=== PATIENT | female | born 1960 | race African-American/Black ===

== ENCOUNTER 2018-03-21 19:48 | Inpatient (IN) ==
[2018-03-21 22:05] LABS: Basophils % 0.3 % (0.0-0.8); Eosinophils % 0.3 % (0.00-10.9); Hematocrit 29.4 VOL% (35.7-47.0); Immature Granulocytes % 0.3 %; Immature Granulocytes Absolute 0.03 #; Lymphocytes # 1.9 10*3/uL (1.4-4.0); Lymphocytes % 22.5 % (21.3-54.2); Mean Corpuscular Hemoglobin 27 PG (27-34); Mean Platelet Volume 9.5 FL (9.6-12.0); Monocytes # 0.7 10*3/uL (0.11-0.8); Monocytes % 7.7 % (1.7-12.7); Neutrophils # 5.9 10*3/uL (1.4-7.4); Neutrophils % 68.9 % (38.7-73.9); Platelet Count 449 T/CUMM (130-400); Red Blood Count 3.77 MC/CUMM (3.8-5.5); Red Cell Distribution Width 17.2 % (9.3-17.3); White Blood Count 8.6 T/CUMM (4-12)
[2018-03-21 22:29] LABS: Albumin 2.4 G/DL (3.4-5.0); Bilirubin,Total 0.4 MG/DL (0.2-1.0); Calcium 9.8 MG/DL (8.5-10.1); Lactic Acid 0.6 MMOL/L (0.4-2.0); Osmolality,Calculated 269.2 MOS/KG (273-304); Total Protein 9.7 G/DL (6.4-8.3)
[2018-03-21 22:39] LABS: Potassium 2.3 MMOL/L (3.5-5.1)
[2018-03-21] MEDS ORDERED: POTASSIUM CHLORIDE 20 MEQ TABLET PO STA ×2 (22:40→23:27)
[2018-03-22] MEDS ORDERED: ONDANSETRON 4 MG/2 ML VIAL IV PRN (02:28)
[2018-03-22] MEDS ORDERED: ACETAMINOPHEN 325 MG TABLET PO PRN (02:28)
[2018-03-22] MEDS ORDERED: POLYETHYLENE GLYCOL POWDER 17 GM PACK PO PRN (02:34)
[2018-03-22 04:11] LABS: Basophils % 0.5 % (0.0-0.8); Eosinophils % 0.5 % (0.00-10.9); Hematocrit 29.7 VOL% (35.7-47.0); Immature Granulocytes % 0.5 %; Immature Granulocytes Absolute 0.04 #; Lymphocytes # 1.8 10*3/uL (1.4-4.0); Lymphocytes % 21.6 % (21.3-54.2); Mean Corpuscular HGB Conc 33.7 GM/DL (32-36); Mean Corpuscular Hemoglobin 26 PG (27-34); Mean Corpuscular Volume 77.7 FL (87-102); Mean Platelet Volume 9.1 FL (9.6-12.0); Monocytes # 0.7 10*3/uL (0.11-0.8); Monocytes % 8.9 % (1.7-12.7); Neutrophils # 5.6 10*3/uL (1.4-7.4); Platelet Count 402 T/CUMM (130-400); Red Blood Count 3.82 MC/CUMM (3.8-5.5); Red Cell Distribution Width 17.1 % (9.3-17.3); White Blood Count 8.2 T/CUMM (4-12)
[2018-03-22 04:27] LABS: Calcium 9.1 MG/DL (8.5-10.1); Osmolality,Calculated 265.5 MOS/KG (273-304)
[2018-03-22 04:46] LABS: Potassium 2.3 MMOL/L (3.5-5.1)
[2018-03-22] MEDS: MORPHINE 4 MG/1 ML VIAL IV PRN ×2 (07:51→16:04)
[2018-03-22] MEDS ORDERED: ENOXAPARIN 40 MG/0.4 ML SYRINGE SUBCUT SCH (09:00)
[2018-03-22] MEDS ORDERED: hydroCHLOROthiazide 25 MG TABLET PO SCH (09:00)
[2018-03-22] MEDS: cycloSPORINE OPH EMUL 1 VIAL BOTH EYES SCH ×2 (09:06→21:03)
[2018-03-22] MEDS: FLUTICASONE 50 MCG NASAL SPRAY 16 GM BOTTLE BOTH NARES SCH (09:06)
[2018-03-22] MEDS: POTASSIUM CHLORIDE RIDER 10 MEQ in PREMIX 1 EACH IV SCH ×4 (09:06→15:18)
[2018-03-22 09:12] LABS: % Iron Saturation 15.2 % (18-50)
[2018-03-22 09:14] LABS: Immunoglobulin A 491 MG/DL (70-400); Immunoglobulin G 1970 MG/DL (700-1600); Immunoglobulin M 104 MG/DL (40-230)
[2018-03-22] MEDS: OMEGA 3 ACID ETHYL ESTERS 1 GM CAPSULE PO SCH ×4 (09:17→21:02)
[2018-03-22] MEDS: POTASSIUM CHLORIDE 20 MEQ TABLET PO SCH (09:17)
[2018-03-22] MEDS: FERROUS SULFATE 325 MG TABLET PO SCH ×3 (09:17→16:04)
[2018-03-22] MEDS: DOCUSATE SODIUM 100 MG CAPSULE PO SCH ×3 (09:17→20:59)
[2018-03-22] MEDS: PANTOPRAZOLE 40 MG TABLET PO SCH ×2 (09:18→15:19)
[2018-03-22] MEDS: TOPIRAMATE 100 MG TABLET PO SCH ×3 (09:18→20:59)
[2018-03-22] MEDS: SPIRONOLACTONE 25 MG TABLET PO SCH (15:19)
[2018-03-22] MEDS: ATORVASTATIN 20 MG TABLET PO SCH (20:59)
[2018-03-22 21:21] LABS: Apearance,Urine Slightly Hazy (Clear); Bacteria,Urine Occasional /HPF (Few); Bilirubin,Urine Negative (Negative); Blood, Urine Small mg/dL (Negative); Glucose,Urine (UA) Negative (Negative); Ketones,Urine 5 mg/dL (Negative); Mucus,Urine Occasional /LPF (Occasional); Nitrite,Urine Negative (Negative); Protein,Urine Negative; RBC,Urine 1 /HPF (0-4); Squamous Epithelial Cell,Urine Many /HPF (0-10); Urine Color Yellow (Yellow); Urine Specific Gravity > 1.060 (1.001-1.035); WBC,Urine 3 /HPF (0-6)
[2018-03-22] MEDS: POTASSIUM CHLORIDE RIDER 10 MEQ in PREMIX 1 EACH IV PRN ×2 (22:05→23:07)
[2018-03-23] MEDS: MORPHINE 4 MG/1 ML VIAL IV PRN (00:14)
[2018-03-23] MEDS: POTASSIUM CHLORIDE RIDER 10 MEQ in PREMIX 1 EACH IV PRN ×8 (00:15→22:38)
[2018-03-23 04:35] LABS: Basophils % 0.3 % (0.0-0.8); Eosinophils # 0.1 10*3/uL (0.0-0.87); Eosinophils % 1.8 % (0.00-10.9); Hematocrit 26.4 VOL% (35.7-47.0); Hemoglobin 9.2 GM/DL (12.0-16.0); Immature Granulocytes % 0.4 %; Immature Granulocytes Absolute 0.03 #; Lymphocytes # 1.8 10*3/uL (1.4-4.0); Lymphocytes % 23.3 % (21.3-54.2); Mean Corpuscular HGB Conc 34.8 GM/DL (32-36); Mean Corpuscular Hemoglobin 27 PG (27-34); Mean Corpuscular Volume 76.5 FL (87-102); Mean Platelet Volume 9.4 FL (9.6-12.0); Monocytes # 0.7 10*3/uL (0.11-0.8); Monocytes % 8.8 % (1.7-12.7); Neutrophils % 65.4 % (38.7-73.9); Platelet Count 385 T/CUMM (130-400); Red Blood Count 3.45 MC/CUMM (3.8-5.5); Red Cell Distribution Width 17.4 % (9.3-17.3); White Blood Count 7.6 T/CUMM (4-12)
[2018-03-23 05:05] LABS: Calcium 8.8 MG/DL (8.5-10.1); Osmolality,Calculated 261.7 MOS/KG (273-304); Potassium 3.4 MMOL/L (3.5-5.1)
[2018-03-23] MEDS: DOCUSATE SODIUM 100 MG CAPSULE PO SCH ×2 (09:08→21:31)
[2018-03-23] MEDS: SPIRONOLACTONE 25 MG TABLET PO SCH (09:08)
[2018-03-23] MEDS: OMEGA 3 ACID ETHYL ESTERS 1 GM CAPSULE PO SCH ×3 (09:08→21:31)
[2018-03-23] MEDS: PANTOPRAZOLE 40 MG TABLET PO SCH (09:09)
[2018-03-23] MEDS: FERROUS SULFATE 325 MG TABLET PO SCH ×2 (09:09→17:30)
[2018-03-23] MEDS: FLUTICASONE 50 MCG NASAL SPRAY 16 GM BOTTLE BOTH NARES SCH (09:09)
[2018-03-23] MEDS: POTASSIUM CHLORIDE 20 MEQ TABLET PO SCH (09:09)
[2018-03-23] MEDS: cycloSPORINE OPH EMUL 1 VIAL BOTH EYES SCH ×2 (09:09→21:32)
[2018-03-23] MEDS: TOPIRAMATE 100 MG TABLET PO SCH ×3 (09:09→21:30)
[2018-03-23] MEDS: ATORVASTATIN 20 MG TABLET PO SCH (21:30)
[2018-03-24] MEDS: MORPHINE 4 MG/1 ML VIAL IV PRN ×2 (01:09→12:08)
[2018-03-24 01:53] LABS: Basophils # 0.1 10*3/uL (0.0-0.2); Basophils % 0.6 % (0.0-0.8); Eosinophils # 0.1 10*3/uL (0.0-0.87); Eosinophils % 1.3 % (0.00-10.9); Hematocrit 25.9 VOL% (35.7-47.0); Immature Granulocytes % 0.8 %; Immature Granulocytes Absolute 0.06 #; Lymphocytes # 1.6 10*3/uL (1.4-4.0); Lymphocytes % 19.7 % (21.3-54.2); Mean Corpuscular HGB Conc 34.7 GM/DL (32-36); Mean Corpuscular Hemoglobin 27 PG (27-34); Mean Corpuscular Volume 76.4 FL (87-102); Mean Platelet Volume 9.4 FL (9.6-12.0); Monocytes # 0.6 10*3/uL (0.11-0.8); Monocytes % 7.9 % (1.7-12.7); Neutrophils # 5.5 10*3/uL (1.4-7.4); Neutrophils % 69.7 % (38.7-73.9); Platelet Count 377 T/CUMM (130-400); Red Blood Count 3.39 MC/CUMM (3.8-5.5); Red Cell Distribution Width 17.2 % (9.3-17.3)
[2018-03-24 02:01] LABS: Calcium 9.2 MG/DL (8.5-10.1); Osmolality,Calculated 264.4 MOS/KG (273-304); Potassium 3.3 MMOL/L (3.5-5.1)
[2018-03-24 02:10] LABS: INR 1.1; PT Patient Result 11.9 SECS; Partial Thromboplastin Time 28.9 SECS (0-40)
[2018-03-24 07:25] LABS: Total Protein (Chem) 9.2 G/DL (6.4-8.3)
[2018-03-24 09:23] LABS: Albumin (SPE) 3.3 G/DL (3.2-5.3); Albumin (SPE) Rel % 35.6 %; Alpha 1 (SPE) 0.5 G/DL (0.1-0.4); Alpha 1 (SPE) Rel % 5.7 %; Alpha 2 (SPE) 1.5 G/DL (0.4-1.0); Alpha 2 (SPE) Rel % 16.2 %; Beta (SPE) 1.4 G/DL (0.5-1.1); Beta (SPE) Rel % 15.2 %; Gamma (SPE) 2.5 G/DL (0.7-1.7); Gamma (SPE) Rel % 27.3 %
[2018-03-24] MEDS: SPIRONOLACTONE 25 MG TABLET PO SCH (10:05)
[2018-03-24] MEDS: TOPIRAMATE 100 MG TABLET PO SCH ×3 (10:06→21:54)
[2018-03-24] MEDS: PANTOPRAZOLE 40 MG TABLET PO SCH (10:06)
[2018-03-24] MEDS: FERROUS SULFATE 325 MG TABLET PO SCH ×2 (10:06→16:40)
[2018-03-24] MEDS: OMEGA 3 ACID ETHYL ESTERS 1 GM CAPSULE PO SCH ×3 (10:06→21:54)
[2018-03-24] MEDS: POTASSIUM CHLORIDE 20 MEQ TABLET PO SCH (10:07)
[2018-03-24] MEDS: FLUTICASONE 50 MCG NASAL SPRAY 16 GM BOTTLE BOTH NARES SCH (10:07)
[2018-03-24] MEDS: POTASSIUM CHLORIDE RIDER 10 MEQ in PREMIX 1 EACH IV PRN ×4 (10:07→17:43)
[2018-03-24] MEDS: DOCUSATE SODIUM 100 MG CAPSULE PO SCH ×2 (10:07→21:54)
[2018-03-24] MEDS: cycloSPORINE OPH EMUL 1 VIAL BOTH EYES SCH ×2 (10:20→21:57)
[2018-03-24] MEDS: ATORVASTATIN 20 MG TABLET PO SCH (21:54)
[2018-03-25 04:49] LABS: Basophils % 0.5 % (0.0-0.8); Eosinophils # 0.1 10*3/uL (0.0-0.87); Eosinophils % 1.1 % (0.00-10.9); Hematocrit 26.1 VOL% (35.7-47.0); Hemoglobin 8.6 GM/DL (12.0-16.0); Immature Granulocytes % 0.7 %; Immature Granulocytes Absolute 0.06 #; Lymphocytes # 1.6 10*3/uL (1.4-4.0); Lymphocytes % 18.3 % (21.3-54.2); Mean Corpuscular Hemoglobin 26 PG (27-34); Mean Corpuscular Volume 79.1 FL (87-102); Mean Platelet Volume 9.4 FL (9.6-12.0); Monocytes # 0.8 10*3/uL (0.11-0.8); Monocytes % 8.9 % (1.7-12.7); Neutrophils # 6.3 10*3/uL (1.4-7.4); Neutrophils % 70.5 % (38.7-73.9); Platelet Count 371 T/CUMM (130-400); Red Cell Distribution Width 17.4 % (9.3-17.3); White Blood Count 8.9 T/CUMM (4-12)
[2018-03-25 05:17] LABS: Calcium 9.2 MG/DL (8.5-10.1); Osmolality,Calculated 266.2 MOS/KG (273-304); Potassium 3.5 MMOL/L (3.5-5.1)
[2018-03-25] MEDS: cycloSPORINE OPH EMUL 1 VIAL BOTH EYES SCH ×2 (09:19→20:26)
[2018-03-25] MEDS: FLUTICASONE 50 MCG NASAL SPRAY 16 GM BOTTLE BOTH NARES SCH (09:19)
[2018-03-25] MEDS ORDERED: BUPIVACAINE 0.5% /EPI 10 ML VIAL ONE (11:01)
[2018-03-25] MEDS ORDERED: VANCOMYCIN 500 MG VIAL ONE (11:05)
[2018-03-25] MEDS ORDERED: VANCOMYCIN 1,000 MG VIAL ONE ×2 (11:05→11:07)
[2018-03-25] MEDS ORDERED: TOBRAMYCIN 1.2 GM VIAL TOP ONE (11:07)
[2018-03-25] MEDS ORDERED: MORPHINE 4 MG/1 ML VIAL IV PRN (12:10)
[2018-03-25] MEDS ORDERED: PROPOFOL 200 MG/20 ML VIAL IV ONE (12:18)
[2018-03-25] MEDS ORDERED: SEVOFLURANE 1 UNIT/15 MINUTE INH ONE (12:18)
[2018-03-25] MEDS ORDERED: ONDANSETRON 4 MG/2 ML VIAL ONE ×2 (12:19→12:24)
[2018-03-25] MEDS ORDERED: SODIUM CHLORIDE 0.9% 250 ML IV ONE (12:19)
[2018-03-25] MEDS ORDERED: DEXAMETHASONE 10 MG/1 ML VIAL ONE (12:19)
[2018-03-25] MEDS ORDERED: MIDAZOLAM 2 MG/2 ML VIAL ONE (12:19)
[2018-03-25] MEDS ORDERED: KETOROLAC 30 MG/1 ML VIAL ONE (12:19)
[2018-03-25] MEDS ORDERED: fentaNYL 100 MCG/2 ML VIAL ONE (12:19)
[2018-03-25] MEDS ORDERED: HYDROmorphone 2 MG/1 ML VIAL ONE (12:24)
[2018-03-25] MEDS: HYDROmorphone 2 MG/1 ML VIAL IV PRN ×2 (12:26→12:31)
[2018-03-25] MEDS ORDERED: ONDANSETRON 4 MG/2 ML VIAL IV PRN (12:28)
[2018-03-25 13:33] LABS: Immuno Free Light Chain Kappa 5.23 MG/DL (0.33-1.94); Immuno Free Light Chain Lambda 3.43 MG/DL (0.57-2.63); Immuno Free Light Chain Ratio 1.52 MG/DL (0.26-1.65)
[2018-03-25] MEDS: SPIRONOLACTONE 25 MG TABLET PO SCH (13:33)
[2018-03-25] MEDS: TOPIRAMATE 100 MG TABLET PO SCH ×5 (13:34→20:32)
[2018-03-25] MEDS: DOCUSATE SODIUM 100 MG CAPSULE PO SCH ×2 (13:34→20:26)
[2018-03-25] MEDS: FERROUS SULFATE 325 MG TABLET PO SCH ×2 (13:34→18:09)
[2018-03-25] MEDS: POTASSIUM CHLORIDE 20 MEQ TABLET PO SCH (13:34)
[2018-03-25] MEDS: PANTOPRAZOLE 40 MG TABLET PO SCH (13:34)
[2018-03-25] MEDS: OMEGA 3 ACID ETHYL ESTERS 1 GM CAPSULE PO SCH ×3 (13:34→20:25)
[2018-03-25] MEDS: LACTATED RINGERS 1,000 ML IV SCH ×2 (13:36→23:59)
[2018-03-25] MEDS: ATORVASTATIN 20 MG TABLET PO SCH (20:25)
[2018-03-25] MEDS: MORPHINE 4 MG/1 ML VIAL IV PRN (20:26)
[2018-03-26] MEDS: MORPHINE 4 MG/1 ML VIAL IV PRN (00:02)
[2018-03-26 04:26] LABS: Basophils % 0.3 % (0.0-0.8); Eosinophils # 0.1 10*3/uL (0.0-0.87); Eosinophils % 1.1 % (0.00-10.9); Hematocrit 24.2 VOL% (35.7-47.0); Hemoglobin 8.3 GM/DL (12.0-16.0); Immature Granulocytes % 0.4 %; Immature Granulocytes Absolute 0.04 #; Lymphocytes # 1.4 10*3/uL (1.4-4.0); Lymphocytes % 14.3 % (21.3-54.2); Mean Corpuscular HGB Conc 34.3 GM/DL (32-36); Mean Corpuscular Hemoglobin 27 PG (27-34); Mean Corpuscular Volume 78.1 FL (87-102); Mean Platelet Volume 9.7 FL (9.6-12.0); Monocytes # 0.9 10*3/uL (0.11-0.8); Monocytes % 9.1 % (1.7-12.7); Neutrophils # 7.1 10*3/uL (1.4-7.4); Neutrophils % 74.8 % (38.7-73.9); Platelet Count 379 T/CUMM (130-400); Red Cell Distribution Width 17.9 % (9.3-17.3); White Blood Count 9.5 T/CUMM (4-12)
[2018-03-26 05:03] LABS: Calcium 8.5 MG/DL (8.5-10.1); Osmolality,Calculated 273.7 MOS/KG (273-304); Potassium 3.6 MMOL/L (3.5-5.1)
[2018-03-26] MEDS ORDERED: DEXAMETHASONE INJ 10 MG in SODIUM CHLORIDE 0.9% 50 ML IV ONE (07:39)
[2018-03-26] MEDS ORDERED: IRON DEXTRAN 1,500 MG in SODIUM CHLORIDE 0.9% 500 ML IV ONE (07:39)
[2018-03-26] MEDS ORDERED: ACETAMINOPHEN 500 MG TABLET PO ONE (07:39)
[2018-03-26] MEDS ORDERED: diphenhydrAMINE CAP 25 MG CAPSULE PO ONE (07:39)
[2018-03-26] MEDS ORDERED: IRON DEXTRAN 25 MG in SYRINGE 1 EACH IV ONE (07:39)
[2018-03-26] MEDS: VANCOMYCIN INJ 1,500 MG in SODIUM CHLORIDE 0.9% 500 ML IV SCH ×3 (07:40→15:20)
[2018-03-26] MEDS: SPIRONOLACTONE 25 MG TABLET PO SCH (09:17)
[2018-03-26] MEDS: FERROUS SULFATE 325 MG TABLET PO SCH ×2 (09:17→16:10)
[2018-03-26] MEDS: FLUTICASONE 50 MCG NASAL SPRAY 16 GM BOTTLE BOTH NARES SCH (09:18)
[2018-03-26] MEDS: PANTOPRAZOLE 40 MG TABLET PO SCH (09:18)
[2018-03-26] MEDS: OMEGA 3 ACID ETHYL ESTERS 1 GM CAPSULE PO SCH ×3 (09:18→21:19)
[2018-03-26] MEDS: POTASSIUM CHLORIDE 20 MEQ TABLET PO SCH (09:18)
[2018-03-26] MEDS: TOPIRAMATE 100 MG TABLET PO SCH ×3 (09:18→21:19)
[2018-03-26] MEDS: DOCUSATE SODIUM 100 MG CAPSULE PO SCH ×2 (09:22→21:19)
[2018-03-26] MEDS: cycloSPORINE OPH EMUL 1 VIAL BOTH EYES SCH ×2 (09:22→21:20)
[2018-03-26] MEDS ORDERED: IRON SUCROSE 300 MG in SODIUM CHLORIDE 0.9% 100 ML IV ONE (11:06)
[2018-03-26] MEDS: FONDAPARINUX 2.5 MG/0.5 ML SYRINGE SUBCUT SCH (15:20)
[2018-03-26] MEDS: LORATADINE 10 MG TABLET PO SCH (16:10)
[2018-03-26] MEDS: ATORVASTATIN 20 MG TABLET PO SCH (21:19)
[2018-03-27] MEDS: VANCOMYCIN INJ 1,500 MG in SODIUM CHLORIDE 0.9% 500 ML IV SCH ×2 (00:15→08:45)
[2018-03-27 05:06] LABS: Basophils % 0.5 % (0.0-0.8); Eosinophils # 0.1 10*3/uL (0.0-0.87); Eosinophils % 0.8 % (0.00-10.9); Hematocrit 24.9 VOL% (35.7-47.0); Hemoglobin 8.4 GM/DL (12.0-16.0); Immature Granulocytes % 0.6 %; Immature Granulocytes Absolute 0.04 #; Lymphocytes # 1.7 10*3/uL (1.4-4.0); Mean Corpuscular HGB Conc 33.7 GM/DL (32-36); Mean Corpuscular Hemoglobin 26 PG (27-34); Mean Corpuscular Volume 77.3 FL (87-102); Mean Platelet Volume 9.4 FL (9.6-12.0); Monocytes # 0.6 10*3/uL (0.11-0.8); Monocytes % 8.4 % (1.7-12.7); Neutrophils # 4.2 10*3/uL (1.4-7.4); Neutrophils % 63.7 % (38.7-73.9); Platelet Count 375 T/CUMM (130-400); Red Blood Count 3.22 MC/CUMM (3.8-5.5); Red Cell Distribution Width 17.9 % (9.3-17.3); White Blood Count 6.5 T/CUMM (4-12)
[2018-03-27] MEDS: FLUTICASONE 50 MCG NASAL SPRAY 16 GM BOTTLE BOTH NARES SCH (08:45)
[2018-03-27] MEDS: FERROUS SULFATE 325 MG TABLET PO SCH ×2 (08:46→16:24)
[2018-03-27] MEDS: OMEGA 3 ACID ETHYL ESTERS 1 GM CAPSULE PO SCH ×3 (08:46→20:36)
[2018-03-27] MEDS: PANTOPRAZOLE 40 MG TABLET PO SCH (08:46)
[2018-03-27] MEDS: DOCUSATE SODIUM 100 MG CAPSULE PO SCH ×2 (08:46→20:36)
[2018-03-27] MEDS: POTASSIUM CHLORIDE 20 MEQ TABLET PO SCH (08:46)
[2018-03-27] MEDS: cycloSPORINE OPH EMUL 1 VIAL BOTH EYES SCH ×2 (08:46→20:35)
[2018-03-27] MEDS: LORATADINE 10 MG TABLET PO SCH (08:46)
[2018-03-27] MEDS: SPIRONOLACTONE 25 MG TABLET PO SCH (08:47)
[2018-03-27] MEDS: TOPIRAMATE 100 MG TABLET PO SCH ×3 (08:51→20:36)
[2018-03-27] MEDS: FONDAPARINUX 2.5 MG/0.5 ML SYRINGE SUBCUT SCH (16:24)
[2018-03-27] MEDS: cefTRIAXone 2,000 MG in SYRINGE 1 EACH IV SCH (16:24)
[2018-03-27] MEDS: ATORVASTATIN 20 MG TABLET PO SCH (20:36)
[2018-03-28 05:43] LABS: Basophils % 0.7 % (0.0-0.8); Eosinophils # 0.2 10*3/uL (0.0-0.87); Eosinophils % 3.9 % (0.00-10.9); Hematocrit 25.5 VOL% (35.7-47.0); Hemoglobin 8.5 GM/DL (12.0-16.0); Immature Granulocytes % 0.5 %; Immature Granulocytes Absolute 0.03 #; Lymphocytes # 2.3 10*3/uL (1.4-4.0); Lymphocytes % 37.9 % (21.3-54.2); Mean Corpuscular HGB Conc 33.3 GM/DL (32-36); Mean Corpuscular Hemoglobin 26 PG (27-34); Mean Corpuscular Volume 78.7 FL (87-102); Mean Platelet Volume 8.8 FL (9.6-12.0); Monocytes # 0.6 10*3/uL (0.11-0.8); Monocytes % 9.9 % (1.7-12.7); Neutrophils # 2.8 10*3/uL (1.4-7.4); Neutrophils % 47.1 % (38.7-73.9); Platelet Count 381 T/CUMM (130-400); Red Blood Count 3.24 MC/CUMM (3.8-5.5); Red Cell Distribution Width 18.1 % (9.3-17.3); White Blood Count 5.9 T/CUMM (4-12)
[2018-03-28] MEDS ORDERED: TOBRAMYCIN 1.2 GM VIAL TOP ONE ×2 (06:34→07:30)
[2018-03-28] MEDS ORDERED: VANCOMYCIN 1,000 MG VIAL ONE ×2 (06:34→07:30)
[2018-03-28] MEDS ORDERED: LACTATED RINGERS 1,000 ML IV SCH (07:00)
[2018-03-28] MEDS ORDERED: NEOMYCIN/POLYMYXIN/BACITRACIN OINT 28.4 GM TUBE TOP ONE (07:45)
[2018-03-28] MEDS ORDERED: fentaNYL 100 MCG/2 ML VIAL ONE ×2 (08:34→13:34)
[2018-03-28] MEDS ORDERED: PROPOFOL 200 MG/20 ML VIAL IV ONE (08:34)
[2018-03-28] MEDS ORDERED: MIDAZOLAM 2 MG/2 ML VIAL ONE (08:34)
[2018-03-28] MEDS ORDERED: SEVOFLURANE 1 UNIT/15 MINUTE INH ONE (08:34)
[2018-03-28] MEDS ORDERED: ONDANSETRON 4 MG/2 ML VIAL ONE (08:35)
[2018-03-28] MEDS ORDERED: KETOROLAC 30 MG/1 ML VIAL ONE (08:35)
[2018-03-28] MEDS: FLUTICASONE 50 MCG NASAL SPRAY 16 GM BOTTLE BOTH NARES SCH (13:00)
[2018-03-28] MEDS: cycloSPORINE OPH EMUL 1 VIAL BOTH EYES SCH (13:01)
[2018-03-28] MEDS: SPIRONOLACTONE 25 MG TABLET PO SCH (13:04)
[2018-03-28] MEDS: OMEGA 3 ACID ETHYL ESTERS 1 GM CAPSULE PO SCH ×2 (13:04→15:21)
[2018-03-28] MEDS: FERROUS SULFATE 325 MG TABLET PO SCH (13:04)
[2018-03-28] MEDS: PANTOPRAZOLE 40 MG TABLET PO SCH (13:04)
[2018-03-28] MEDS: DOCUSATE SODIUM 100 MG CAPSULE PO SCH (13:04)
[2018-03-28] MEDS: POTASSIUM CHLORIDE 20 MEQ TABLET PO SCH (13:05)
[2018-03-28] MEDS: TOPIRAMATE 100 MG TABLET PO SCH ×2 (13:05→15:21)
[2018-03-28] MEDS: LORATADINE 10 MG TABLET PO SCH (13:05)
[2018-03-28] MEDS: cefTRIAXone 2,000 MG in SYRINGE 1 EACH IV SCH (15:08)
[2018-03-28 16:17] VITALS: BP 117/58
== END 2018-03-28 17:40 | disposition home health service (06) | DRG 313 ==
LOC: N.ED 19:48 → N.EDINP 03-22 00:24 → SUATTDRO 03-22 00:24 → N.TELEN 03-22 01:31
PROVIDERS: ADMIT Internal Medicine; ATTEND Family Medicine